=== PATIENT | male | born 1970 | race Caucasian/White ===

== ENCOUNTER 2017-10-18 10:07 | Emergency (ER) | payer MEDICAID ==
[~2017-10-18] VITALS: Ht 165.1 cm; Wt 83.9 kg
[2017-10-18 10:21] VITALS: BP 145/86; Ht 165.1 cm; Wt 83.9 kg
== END 2017-10-18 10:54 | disposition home or self-care (01) ==
LOC: ED 10:07
DX: M26.601 Right temporomandibular joint disorder, unspecified (principal); H92.01 Otalgia, right ear